=== PATIENT | female | born 1975 | race Caucasian/White ===

== ENCOUNTER 2020-07-06 14:28 | Emergency (ER) | payer OTHER ==
[~2020-07-06] VITALS: Ht 162.6 cm; Wt 56.8 kg
[2020-07-06] MEDS ORDERED: MAXA10TA14 PO (14:37)
[2020-07-06] MEDS ORDERED: LISI2.5T2 PO (14:37)
[2020-07-06] MEDS ORDERED: IBUPROFEN 800 MG TAB PO ONE (15:00)
--- NOTE | 2020-07-06 16:04 | REP ---
INDICATION: L knee pain sp ski injury COMPARISON: None. TECHNIQUE: Five views left knee. FINDINGS: There is no evidence of acute fracture, dislocation, or intrinsic bone disease. IMPRESSION: No fracture or dislocation. <Electronically signed by Silvano Crane > 07/06/20 [id number]
[2020-07-06 16:24] VITALS: BP 130/76
== END 2020-07-06 16:27 | disposition home or self-care (01) ==
LOC: M ED 14:28
DX: S83.92XA Sprain of unspecified site of left knee, initial encounter (principal); V00.321A Fall from snow-skis, initial encounter; Y92.828 Other wilderness area as the place of occurrence of the external cause; Y93.23 Activity, snow (alpine) (downhill) skiing, snowboarding, sledding, tobogganing and snow tubing; Y99.9 Unspecified external cause status; I10 Essential (primary) hypertension; G43.909 Migraine, unspecified, not intractable, without status migrainosus; Z88.0 Allergy status to penicillin; Z79.899 Other long term (current) drug therapy

== ENCOUNTER → 2020-12-03 | Outpatient (CLI) | payer OTHER ==
[~2020-12-03] MED LIST: LISI2.5T2 PO; MAXA10TA14 PO
--- NOTE | 2020-12-10 14:32 | REPMRS ---
Patient History The patient states she has not had a clinical breast exam in over a year. Patient had first child at age 33. Family history of breast cancer at age 70 in mother. No breast complaints today Patient signed the MRS sheet Patient had her 1st Pfizer covid vaccine in May. and 2nd in Jul.-both in left arm-does not remember dates Calling for out of [place] priors Patient Identification Verified Patient denied Digital Woman Screen Mammo: December 03, 2020 - Exam #: [id number] Bilateral CC and MLO view(s) were taken. Technologist: Bianca Cruz, Technologist FINDINGS: The breast tissue is heterogeneously dense. This may lower the sensitivity of mammography. Screening. Digital screening (2D) mammography was performed bilaterally in the CC and MLO projections. Additionally, breast tomosynthesis (3D mammography) was performed bilaterally in the CC and MLO projections. Todays exam was compared to the prior exam/exams.There are no prior DBT images for comparison. By history, the patient has no complaints of a palpable breast abnormality or other significant breast complaints. The breasts are unchanged in size and shape.Once again, dense heterogenous fibroglandular elements are seen bilaterally in a stable appearing pattern but to such a degree that the sensitivity of the mammogram in detecting cancer is decreased. There are no merari-soft tissue densities or spiculated masses. There is no internal architectural distortion. There are no suspicious merari-calcific clusters. Skin thickening or nipple retraction is not present. IMPRESSION: BI-RADS Category 2- Benign Findings. There is no evidence of malignant alteration of the breasts. Followup examination recommended in one year. The Volpara volumetric breast density category is C, the breasts are heterogenously dense which may obscure small masses. This mammogram was read with the assistance of [facility] [employer],an FDA approved computer aided detection system for mammography. The lifetime Tyrer-Cuzick score is 23.7 % Due to the density of the breasts or Tyrer Cuzick score of 20% or greater, MRI/whole breast screening ultrasound is warranted. Negative x-ray reports should not delay surgical consultation if a dominant or clinically suspicious mass is present. Not all breast cancers can be identified by mammography. Therefore, we recommend that you continue to perform regular breast self-examination and physical examination and then promptly contact your physician of any concerns or changes. Adenosis and dense breasts may obscure an underlying neoplasm. Assessment: BI-RADS/ACR category 2 mammogram. Benign Findings. Recommendation Routine screening mammogram of both breasts in 1 year. Electronically Signed By: Vernon Benz DO 12/10/20 [id number]
== END ==
LOC: M WHC 14:59
PROVIDERS: ATTEND Physician Assistant
DX: Z12.31 Encounter for screening mammogram for malignant neoplasm of breast (principal); Z80.3 Family history of malignant neoplasm of breast